=== PATIENT | female | born 1985 | race Caucasian/White ===

== ENCOUNTER 2023-05-18 07:01 | Day surgery (SDC) | payer OTHER ==
[2023-05-15 12:00] LABS: INR 0.98; PARTIAL THROMBOPLASTIN TIME 26.5 SECONDS (22.0-34.0); PROTHROMBIN TIME 10.3 SECONDS (9.0-11.5)
[~2023-05-18] VITALS: Ht 160 cm; Wt 72.6 kg
[~2023-05-18 07:01] MED LIST: ENALAPRIL MALEA10 MG PO
[2023-05-18] MEDS ORDERED: POVIDONE-IODINE 118 ML BOTT TOP ONE (13:28)
[2023-05-18] MEDS ORDERED: CHLORHEXIDINE GLUCONATE 120 ML BOTTLE TOP ONE (16:09)
== END 2023-05-18 19:05 | disposition home or self-care (01) ==
LOC: CIR.AMB 07:01
PROVIDERS: ATTEND Obstetrics & Gynecology
DX: N93.9 Abnormal uterine and vaginal bleeding, unspecified (principal); Z91.013 Allergy to seafood